=== PATIENT | female | born 1945 | race Caucasian/White ===

== ENCOUNTER 2016-06-29 06:58 | Day surgery (SDC) | payer MEDICARE, OTHER ==
[2016-06-24 17:56] LABS: BASOPHILS 0.2 %; BASOPHILS ABSOLUTE 0.01 10/3/uL (0.0-0.16); EOSINOPHILS 0.6 %; EOSINOPHILS ABSOLUTE 0.04 10/3/uL (0.0-0.53); HEMATOCRIT 41.4 % (36.0-48.0); HEMOGLOBIN 14.3 g/dL (12.0-16.0); IMMATURE GRANULOCYTES 0.2 %; IMMATURE GRANULOCYTES ABSOLUTE 0.01 10/3/uL (0.0-0.11); LYMPHOCYTES 27.4 %; LYMPHOCYTES ABSOLUTE 1.77 10/3/uL (0.67-4.30); MEAN CORPUS HGB CONC 34.5 g/dL (32.0-36.0); MEAN CORPUSCULAR HEMOGLOB 30.9 pg (26.0-34.0); MEAN CORPUSCULAR VOLUME 89.4 fL (80-100); MEAN PLATELET VOLUME 10.5 fL (9.2-13.0); MONOCYTES 7.9 %; MONOCYTES ABSOLUTE 0.51 10/3/uL (0.21-1.20); NEUTROPHILS 63.7 %; NEUTROPHILS ABSOLUTE 4.11 10/3/uL (2.02-8.40); PLATELET COUNT 172 10/3/uL (150-400); RBC DISTRIBUTION WIDTH 13.5 % (12.0-16.0); RED CELL COUNT 4.63 10/6/uL (4.0-5.6); WHITE BLOOD CELLS 6.5 10/3/uL (4.5-10.5)
[2016-06-24 17:57] LABS: MANUAL DIFF NO %
[2016-06-24 18:03] LABS: A/G RATIO 1.5 (0.7-1.9); ALBUMIN 4.2 G/DL (3.5-5.0); ALKALINE PHOSPHATASE 83 U/L (45-117); BUN (BLOOD UREA NITROGEN) 17 MG/DL (6-23); CALCIUM, SERUM 9.9 MG/DL (8.5-10.4); CHLORIDE, SERUM 100 MMOL/L (96-112); CO2 (CARBON DIOXIDE) 30 MMOL/L (24-34); CREATININE 0.63 MG/DL (0.55-1.02); GFR AFRICAN AMERICAN 106 ML/MIN (>=60); GFR NON AFRICAN AMERICAN 92 ML/MIN (>=60); GLOBULIN 2.8 G/DL (2.5-4.1); GLUCOSE, SERUM 91 MG/DL (60-99); POTASSIUM, SERUM 3.9 MMOL/L (3.5-5.3); SGOT(AST) 12 U/L (5-40); SGPT(ALT) 39 U/L (5-65); SODIUM, SERUM 140 MMOL/L (135-148); TOTAL BILIRUBIN 0.5 MG/DL (0-1.2)
--- NOTE | ~2016-06-29 | OP ---
Record Of Operation [facility] [address] [place]. [address] NAME: ALMA ROSA SHAH : 49 STATUS : [facility]#: [id number] AGE: 71 ADM/REG DATE : 06/29/16 MR#: [id number] REPORT SERV DATE: 06/30/16 DICTATED BY: JAZZ WOOD JR. DATE: 06/29/16 REPORT STATUS : Draft TRANSCRIBED BY: MODL DATE: 06/29/16 DATE OF PROCEDURE: 06/29/2016 SURGEON: Jazz Wood M.D. DECK WORKER: Ermelinda Sahu. PROCEDURE: Laparoscopic cholecystectomy, attempted cholangiography. PREOPERATIVE DIAGNOSIS: Cholelithiasis. POSTOPERATIVE DIAGNOSIS: Cholelithiasis. ANESTHESIA: General. INDICATIONS: The patient had presented with upper abdominal pain. She also had episodes of acholic stools. Imaging showed cholelithiasis without biliary ductal dilatation. Cholecystectomy is indicated with plans of cholangiography to rule out any particular common bile duct abnormality in view of the questionable history of acholic stools. FINDINGS: On laparoscopic exam of her abdomen, there was some inflammation of the gallbladder. The cystic duct was resected. It was very small and would not accept the cholangiogram catheter, therefore, the cholangiogram was aborted. The gallbladder was removed successfully, it contained small stones. No other significant abnormalities were encountered. DESCRIPTION OF PROCEDURE: With adequate general anesthesia, the patient was placed in supine position. The abdomen was prepped and draped sterilely. Marcaine 0.5% was used for local infiltration at all trocar sites. An infraumbilical incision was made. The dissection was carried down sharply through the subcutaneous tissues. The fascia and peritoneum were opened. The peritoneum cavity was entered. A balloon-tipped trocar was introduced. The abdomen was insufflated with CO2. The laparoscope was introduced with the above-noted findings. Under direct vision, a 10 mm trocar was placed in the epigastric region and two 5 mm in the subcostal. The gallbladder was identified, grasped, and retracted in a cephalad manner. The cystic duct was dissected, clipped proximally and partially opened. The catheter could not be introduced as noted. Therefore, the duct was doubly clipped and divided. Some of the artery was doubly clipped and divided. The gallbladder was removed from its bed with electrocautery. It was placed in an Endopouch and extracted through the epigastric site and submitted to Pathology. Bleeding was controlled with electrocautery. The wounds were irrigated thoroughly with saline with no evidence of any bleeding or bile leak. Then, all trocars were removed under direct vision. The umbilical site was closed at the fascial layer with [id number] 0 PDS. All wounds were then closed with 1-0 Monocryl. Sterile dressings were applied. The patient tolerated the procedure well and left the operating room in satisfactory condition. ESTIMATED BLOOD LOSS: 10 mL. Record Of Operation [address] [address] NAME: ALMA ROSA SHAH : 49 STATUS : [facility]#: [id number] AGE: 71 ADM/REG DATE : 06/29/16 MR#: [id number] REPORT SERV DATE: 06/30/16 DICTATED BY: JAZZ WOOD JR. DATE: 06/29/16 REPORT STATUS : Draft TRANSCRIBED BY: KEITH DATE: 06/29/16 PARKER/KEITH Jazz Wood Jr., M.D. / [id number] CC: Marleny Dietrich Jr., JESUS M
[~2016-06-29 06:58] MED LIST: ACET500CAP PO; ALLEGRA180 PO; ATEN100 PO; COREG12 PO; ESTRACE1 MG PO; ESTRADIOL2 MG PO; GYNODIOL2 MG PO; HYGROTON 25 MG25 MG PO; MELATONIN10 M2 PO; METHOC500B PO; MOTRIN IB200 MG PO; OXYCOD PO; PACERONE400 MG PO; PEP20 PO; PR25 PO; PRILO PO; PRIN5 PO; VALIUM10 MG PO; XARELTO20 MG PO
== END 2016-06-29 18:07 | disposition home or self-care (01) ==
LOC: SDC 06:58
PROVIDERS: Specialist
PROC: 0FT44ZZ Resection of Gallbladder, Percutaneous Endoscopic Approach (ICD-10-PCS; principal; 2016-06-29 09:00)
DX: K80.10 Calculus of gallbladder with chronic cholecystitis without obstruction (principal); I11.0 Hypertensive heart disease with heart failure; I50.9 Heart failure, unspecified; I48.2 Chronic atrial fibrillation; I42.0 Dilated cardiomyopathy; E78.5 Hyperlipidemia, unspecified; E78.00 Pure hypercholesterolemia, unspecified; Z88.2 Allergy status to sulfonamides; Z88.5 Allergy status to narcotic agent; Z88.8 Allergy status to other drugs, medicaments and biological substances; Z79.01 Long term (current) use of anticoagulants; Z79.899 Other long term (current) drug therapy; Z96.5 Presence of tooth-root and mandibular implants; Z87.01 Personal history of pneumonia (recurrent); Z98.1 Arthrodesis status; Z90.710 Acquired absence of both cervix and uterus; Z98.890 Other specified postprocedural states; Z85.820 Personal history of malignant melanoma of skin
CPT/HCPCS: 36415; 71020-PO; 80053; 82150; 83690; 85025; 88304; 93005; J0330; J0690; J1885; J2250; J2405; J2710; J3010; Q9967

== ENCOUNTER 2016-08-29 14:45 | Inpatient (IN) | payer MEDICARE, OTHER ==
--- NOTE | ~2016-08-29 | HP ---
History And Physical [place] [id number] [facility] [place]. [address] NAME: ALMA ROSA SHAH : 49 STATUS : ADM Jarrod PAT#: [id number] AGE: 71 ADM/REG DATE : 08/29/16 MR#: [id number] REPORT SERV DATE: 08/29/16 DICTATED BY: JEAN SAVAGE DATE: 08/29/16 REPORT STATUS : Draft TRANSCRIBED BY: MODL DATE: 08/29/16 DATE OF ADMISSION: 08/29/2016 IDENTIFYING DATA: A 71-year-old, female, whose PCP is physician floor covering printer assistant, Fuentes Casey; General Surgery, Dr. Bernabe Martínez; Ortho Spine, Dr. Lobato; information security systems instructor, Dr. Bernabe Ramirez; Cardiology, Dr. Chaitanya Rubio. CHIEF COMPLAINT: Allergic reaction. HISTORY OF PRESENT ILLNESS: This history of present illness is obtained by talking with the patient and her as well as ER physician, Dr. Harris, and reviewing Medi[employer]., Chart[employer]x is down. This morning, she awoke, feeling some soreness in her right axilla area, itching, then she has welts over her anterior upper chest and arms and her noticed it on the back, some on her abdomen, some on her thighs, forehead, right eyelid, upper lips. She took two Benadryl by mouth, some Benadryl spray, and some allergy cream her had. She went to [facility] walk-in clinic where she reports her blood pressure was low, they gave her an injection of epinephrine, brought her by ambulance to our ER where her blood pressure was 95/63. She was given saline, Pepcid IV, Solu-Medrol 125 mg IV, Benadryl 25 mg IV. The Pepcid was [address] Harris reports that the rash spread. The patient states she started yesterday some styt-ynp-momaszz supplement called Stevinson which has D-Mannose. She also states that a week or so ago, she was on Cipro for urinary tract infection and she believes it was Cipro she states with some orange and black pill. She quit about four days ago and she started a yellow and black pill 100 mg for the last four days. She used to take Azo-Standard, but has not in three weeks. She states this is because of recurrent dysuria and urinary frequency and advised by her physicians to do such. REVIEW OF SYSTEMS: She has a chronic sore throat, chronic hoarse voice, mild cough. She had diarrhea three weeks ago. She states intermittently since her gallbladder surgery, she had some white- colored stools for which she has been following up with Dr. Martínez. She underwent a HIDA scan, 07/16/2016, that was reportedly unremarkable other than the evidence of cholecystectomy. She denies fever, chest pain, shortness of breath, abdominal pain, nausea, vomiting, bright red blood per rectum, melena, peripheral edema, headaches, anorexia, or weight change. PAST MEDICAL HISTORY: She claims allergy to sulfa, codeine, hydrocodone, oxycodone, methocarbamol, tramadol. She denies any history of diabetes, asthma, COPD, myocardial infarction, stroke, seizure, peptic ulcer, liver disease, chronic kidney disease, thyroid disease, or sleep apnea. Past medical historyotherwise positive for atrial fibrillation with previous rapid ventricular response and previous episodes of congestive heart failure. She has a history History And Physical [address] [address] NAME: ALMA ROSA SHAH : 49 STATUS : ADM Jarrod PAT#: [id number] AGE: 71 ADM/REG DATE : 08/29/16 MR#: [id number] REPORT SERV DATE: 08/29/16 DICTATED BY: JEAN SAVAGE DATE: 08/29/16 REPORT STATUS : Draft TRANSCRIBED BY: MODJames DATE: 08/29/16 of hyperlipidemia, hypertension, bilateral pneumonia in 2013. She has had a pre-melanotic lesion removed. She has had chronic insomnia. HOME MEDICATIONS: Lipitor 10 mg at bedtime; Coreg 12.5 mg b.i.d.; chlorthalidone 25 mg daily; Valium 10 mg at bedtime p.r.n., she states she has been taking that every night for years; Benadryl just in the last 24 hours; lisinopril 5 mg b.i.d.; melatonin 10 mg at bedtime; fish oil 1200 mg at bedtime and 360 mg supplement also of fish oil; Xarelto 20 mg at bedtime; Benadryl spray. PAST SURGICAL HISTORY: She had cervical spine surgery, MATT-BSO, bladder suspension twice, laparoscopic cholecystectomy, and some skin cancer removals. SOCIAL HISTORY: She is . Used to work for a [employer]. She is retired. She has no tobacco or alcohol intake history. FAMILY HISTORY: Mother with senile dementia, thyroid disease, diabetes, chronic kidney disease and it is her mother's birthday today. Father's history, she does not know, and she is an only child. DIAGNOSTIC DATA: Sodium 140, potassium 3.4, chloride 104, CO2 is 27, BUN 15, creatinine 0.61, glucose 137. Total protein 5.8, albumin 3.3. The rest of the CMP is normal. White count is 18.4, hemoglobin is 15.8, platelets are 176,000. PHYSICAL EXAMINATION: VITAL SIGNS: Temperature 98, pulse 70, respirations 18, blood pressure 113/55, O2 saturation 98% on room air. GENERAL: Well-developed female, who at this point in time, appears with some itching, but no acute distress otherwise. HEENT: Head is atraumatic. Pupils are equal, round, and reactive to light. There is some swelling of the right upper eyelid. There is no conjunctival erythema that I noticed. Ear canals and TMs unremarkable with normal hearing. Nose, noninflamed externally. Septum midline. Nares patent. Mouth, she has some mild swelling of her upper mid lip. No lesions noted in her mouth or throat. She has a good gag. No redness of the throat. NECK: Supple. No lymph node or thyroid enlargement. The carotids have good pulses. No bruits. LUNGS: Clear. Good air flow. No wheezes. No rhonchi. Normal respiratory effort. HEART: Irregularly irregular without gallop, click, murmur, or rub. ABDOMEN: Bowel sounds positive. Soft, nondistended, nontender. No masses. No organomegaly. EXTREMITIES: Warm. Good pulses. No clubbing, no cyanosis, no edema except her fingers look like they may be mildly diffusely swollen, both hands. SKIN: Large areas of red raised coalescing spots, some of them are the size of a dime, others cover larger than my palm. These are spread out over her back. They are more intense around the dressing that is on a place where she had a recent biopsy, but they clearly extend the way beyond this. They also extend around along the waistband circumferentially, but they also extend up to under the breast, upper chest, upper thighs, forearms, palms. History And Physical [address] [place]. [address] NAME: ALMA ROSA SHAH : 49 STATUS : ADM Jarrod PAT#: [id number] AGE: 71 ADM/REG DATE : 08/29/16 MR#: [id number] REPORT SERV DATE: 08/29/16 DICTATED BY: JEAN SAVAGE DATE: 08/29/16 REPORT STATUS : Draft TRANSCRIBED BY: KEITH DATE: 08/29/16 Neurologic: Alert, oriented, cooperative with grossly normal mentation and speech as well as motor and cranial nerves 2 through 12. ASSESSMENT: 1. Allergic reaction with hives and some earlier low blood pressure today. This is most likely a recent medication, maybe one of the antibiotic she has been taking or this kgth-pfu-paubyrs supplement called Stevinson. 2. Chronic atrial fibrillation with past episodes of rapid ventricular response and past episodes of congestive heart failure, but we do not have any recent echocardiograms to county judge her ejection fraction. 3. Leukocytosis is probably due to problem #1 and the epinephrine given at the outside facility before she came here. 4. Low potassium, probably from her chlorthalidone. 5. History consistent with recent urinary tract infections. 6. See past medical history. PLAN: 1. Observation on telemetry. 2. Continue steroids, Pepcid, and Benadryl. We will check an EKG. Replace her potassium. We will check a urinalysis and urine culture. is updated at the bedside at this time. I have advised her she may be allergic to those recent antibiotics and that supplement Stevinson. RSG/KEITH Jean Savage M.D. / [id number] CC: Marleny Álvarez M.D.
--- NOTE | ~2016-08-29 | DS ---
Discharge Summary [place] [address] [place]. [address] NAME: ALMA ROSA SHAH : 49 STATUS : DIS IN PAT#: [id number] AGE: 71 ADM/REG DATE : 08/31/16 MR#: [id number] REPORT SERV DATE: 09/01/16 DICTATED BY: PRINCESS HUANG DATE: 08/31/16 REPORT STATUS : Draft TRANSCRIBED BY: MODL DATE: 08/31/16 ADMISSION DATE: 08/29/2016 DISCHARGE DATE: 08/31/2016 PRINCIPAL DIAGNOSIS: Anaphylaxis or allergic reaction to unknown substance. SECONDARY DIAGNOSES: Urticaria, hypotension with a history of hypertension. HISTORY OF PRESENT ILLNESS: Please See Dr. Savage's dictation of 08/31/2016. HOSPITAL COURSE: Admitted with anaphylactic reaction with hypotension, severe swelling of the face, and a drug eruption all over her body. The patient received steroids H1 and H2 blockers. She did not actually require epinephrine. Blood pressure remained in the 90s on IV fluids off her blood pressure medicine. Things got better over the course of a couple of days, able to be transitioned to oral prednisone, continue hydroxyzine, Pepcid. She is also given a prescription for an EpiPen and referred to an greenkeeper as she had been previously on allergy shots and was recommended to be re-evaluated for allergic triggers with resulting anaphylactic reaction. She will follow up also with Dr. Fuentes Casey on the next available appointment. DICTATED BY: Marleny Álvarez/KEITH Princess Huang M.D. / [id number] CC: Marleny Álvarez [facility]
[2016-08-29 14:47] LABS: ER CBC TAT 0 Hrs 05 Mins; HEMATOCRIT 44.6 % (36.0-48.0); HEMOGLOBIN 15.8 g/dL (12.0-16.0); MANUAL DIFF YES %; MEAN CORPUS HGB CONC 35.4 g/dL (32.0-36.0); MEAN CORPUSCULAR HEMOGLOB 30.5 pg (26.0-34.0); MEAN CORPUSCULAR VOLUME 86.1 fL (80-100); MEAN PLATELET VOLUME 10.3 fL (9.2-13.0); PLATELET COUNT 176 10/3/uL (150-400); RBC DISTRIBUTION WIDTH 12.5 % (12.0-16.0); RED CELL COUNT 5.18 10/6/uL (4.0-5.6); WHITE BLOOD CELLS 18.4 10/3/uL (4.5-10.5)
[2016-08-29 15:01] LABS: A/G RATIO 1.3 (0.7-1.9); ALBUMIN 3.3 G/DL (3.5-5.0); ALKALINE PHOSPHATASE 100 U/L (45-117); BUN (BLOOD UREA NITROGEN) 15 MG/DL (6-23); CHLORIDE, SERUM 104 MMOL/L (96-112); CO2 (CARBON DIOXIDE) 27 MMOL/L (24-34); CREATININE 0.61 MG/DL (0.55-1.02); GFR AFRICAN AMERICAN 107 ML/MIN (>=60); GFR NON AFRICAN AMERICAN 92 ML/MIN (>=60); SGOT(AST) 20 U/L (5-40); SGPT(ALT) 36 U/L (5-65); SODIUM, SERUM 140 MMOL/L (135-148); TOTAL BILIRUBIN 0.5 MG/DL (0-1.2); TOTAL PROTEIN 5.8 G/DL (6.0-8.5)
[2016-08-29 15:04] LABS: CALCIUM, SERUM 8.7 MG/DL (8.5-10.4); GLOBULIN 2.5 G/DL (2.5-4.1); GLUCOSE, SERUM 137 MG/DL (60-99); POTASSIUM, SERUM 3.4 MMOL/L (3.5-5.3)
[2016-08-29 15:15] LABS: BAND NEUTROPHILS 6 %; ER DIFF TAT 0 Hrs 33 Mins; LYMPHOCYTES 10 %; LYMPHOCYTES ABSOLUTE (CALC) 1.84 10/3/uL (0.67-4.30); MONOCYTES 4 %; MONOCYTES ABSOLUTE (CALC) 0.74 10/3/uL (0.21-1.20); NEUTROPHILS ABSOLUTE (CALC) 15.82 10/3/uL (2.02-8.40); PLATELET ESTIMATE ADQ (ADEQUATE); SEGMENTED NEUTROPHIL (0) 80 %; TOTAL NUCLEATED CELLS 100
[2016-08-29 15:16] LABS: RBC MORPHOLOGY NORM (NORMAL)
[2016-08-29] MEDS ORDERED: COREG12 PO (18:05)
[2016-08-29] MEDS ORDERED: TYLENOL PM PO (18:05)
[2016-08-29] MEDS ORDERED: PRIN5 PO (18:05)
[2016-08-29] MEDS ORDERED: HYGROTON 25 MG25 MG PO (18:05)
[2016-08-29] MEDS ORDERED: LIPITOR10 PO (18:06)
[2016-08-29] MEDS ORDERED: XARELTO20 MG PO (18:06)
[2016-08-29] MEDS ORDERED: BEN25 PO (18:06)
[2016-08-29] MEDS ORDERED: BENADRYL PO (18:07)
[2016-08-29] MEDS ORDERED: FISH OIL1200 MG PO (18:07)
[2016-08-29] MEDS ORDERED: FISH OIL300 MG PO (18:07)
[2016-08-29] MEDS ORDERED: MELATONIN10 M2 PO (18:08)
[2016-08-29] MEDS ORDERED: VALIUM10 MG PO (18:08)
[2016-08-29 23:49] LABS: ASCORBIC ACID (UR NOT ORDER) NEG (NEG); BILIRUBIN, URINE NEGATIVE (NEG); KETONE, URINE NEGATIVE (NEG); LEUKOCYTE ESTERASE(NOT OR NEG (NEG); WBC (NOT ORDERED) (RFLEX) < 1 (0-5)
[2016-08-30 04:43] LABS: BASOPHILS 0.1 %; BASOPHILS ABSOLUTE 0.01 10/3/uL (0.0-0.16); EOSINOPHILS 0 %; HEMATOCRIT 36.7 % (36.0-48.0); HEMOGLOBIN 13.1 g/dL (12.0-16.0); IMMATURE GRANULOCYTES 0.2 %; IMMATURE GRANULOCYTES ABSOLUTE 0.03 10/3/uL (0.0-0.11); LYMPHOCYTES 3.9 %; LYMPHOCYTES ABSOLUTE 0.53 10/3/uL (0.67-4.30); MANUAL DIFF NO %; MEAN CORPUS HGB CONC 35.7 g/dL (32.0-36.0); MEAN CORPUSCULAR HEMOGLOB 30.5 pg (26.0-34.0); MEAN CORPUSCULAR VOLUME 85.5 fL (80-100); MEAN PLATELET VOLUME 10.3 fL (9.2-13.0); MONOCYTES 1.7 %; MONOCYTES ABSOLUTE 0.23 10/3/uL (0.21-1.20); NEUTROPHILS 94.1 %; NEUTROPHILS ABSOLUTE 12.64 10/3/uL (2.02-8.40); PLATELET COUNT 142 10/3/uL (150-400); RBC DISTRIBUTION WIDTH 12.5 % (12.0-16.0); RED CELL COUNT 4.29 10/6/uL (4.0-5.6); WHITE BLOOD CELLS 13.4 10/3/uL (4.5-10.5)
[2016-08-30 04:56] LABS: BUN (BLOOD UREA NITROGEN) 18 MG/DL (6-23); CALCIUM, SERUM 8.5 MG/DL (8.5-10.4); CHLORIDE, SERUM 104 MMOL/L (96-112); CO2 (CARBON DIOXIDE) 26 MMOL/L (24-34); CREATININE 0.88 MG/DL (0.55-1.02); GFR AFRICAN AMERICAN 78 ML/MIN (>=60); GFR NON AFRICAN AMERICAN 67 ML/MIN (>=60); GLUCOSE, SERUM 181 MG/DL (60-99); POTASSIUM, SERUM 3.4 MMOL/L (3.5-5.3); SODIUM, SERUM 138 MMOL/L (135-148)
[2016-08-31 05:07] LABS: BASOPHILS 0 %; EOSINOPHILS 0 %; HEMATOCRIT 36.5 % (36.0-48.0); HEMOGLOBIN 12.9 g/dL (12.0-16.0); IMMATURE GRANULOCYTES 0.2 %; IMMATURE GRANULOCYTES ABSOLUTE 0.02 10/3/uL (0.0-0.11); LYMPHOCYTES 6.2 %; LYMPHOCYTES ABSOLUTE 0.66 10/3/uL (0.67-4.30); MEAN CORPUS HGB CONC 35.3 g/dL (32.0-36.0); MEAN CORPUSCULAR HEMOGLOB 30.5 pg (26.0-34.0); MEAN CORPUSCULAR VOLUME 86.3 fL (80-100); MEAN PLATELET VOLUME 12.1 fL (9.2-13.0); MONOCYTES 1.9 %; NEUTROPHILS 91.7 %; NEUTROPHILS ABSOLUTE 9.82 10/3/uL (2.02-8.40); PLATELET COUNT 104 10/3/uL (150-400); RBC DISTRIBUTION WIDTH 12.8 % (12.0-16.0); RED CELL COUNT 4.23 10/6/uL (4.0-5.6); WHITE BLOOD CELLS 10.7 10/3/uL (4.5-10.5)
[2016-08-31 05:16] LABS: MANUAL DIFF NO %
[2016-08-31] MEDS ORDERED: PEP20 PO (11:19)
[2016-08-31] MEDS ORDERED: AT25 PO (11:20)
[2016-08-31] MEDS ORDERED: PRED50B PO (11:21)
[2016-08-31] MEDS ORDERED: EPIPEN0.3 IM (11:21)
== END 2016-08-31 12:32 | disposition home or self-care (01) | DRG 607 ==
LOC: ER 14:45 → CDU1 17:50 → CDU2 18:54
PROVIDERS: Emergency Medicine; Hospitalist; Internal Medicine
DX: L27.0 Generalized skin eruption due to drugs and medicaments taken internally (principal); I48.2 Chronic atrial fibrillation; T50.905A Adverse effect of unspecified drugs, medicaments and biological substances, initial encounter; Y92.009 Unspecified place in unspecified non-institutional (private) residence as the place of occurrence of the external cause; L50.0 Allergic urticaria; E78.5 Hyperlipidemia, unspecified; I10 Essential (primary) hypertension; Z85.828 Personal history of other malignant neoplasm of skin; Z79.01 Long term (current) use of anticoagulants
CPT/HCPCS: 80048; 80053; 81001; 85025; 93005; 96374; 96375; 99284; A9270-GY; J1200; J2930

== ENCOUNTER 2016-09-02 12:47 | Inpatient (IN) | payer MEDICARE, OTHER ==
--- NOTE | ~2016-09-02 | DS ---
Discharge Summary [facility] [address] [place]. [address] NAME: ALMA ROSA SHAH : 49 STATUS : ADM IN PAT#: [id number] AGE: 71 ADM/REG DATE : 09/03/16 MR#: [id number] REPORT SERV DATE: 09/05/16 DICTATED BY: MIGUELANGEL ALEXANDER DATE: 09/05/16 REPORT STATUS : Draft TRANSCRIBED BY: MODL DATE: 09/05/16 ADMISSION DATE: 09/03/2016 DISCHARGE DATE: 09/05/2016 FINAL HOSPITAL DIAGNOSES: 1. Atrial fibrillation. 2. Recent hospitalization for anaphylactic reaction to suspected [id number]-vtvppgq med, resolved. 3. Hypertension. 4. Remote history of congestive heart failure, improved. CONSULTATIONS: Cardiology, Dr. Rubio. PROCEDURES: None. CURRENT PHYSICAL FINDINGS AND HISTORY OF PRESENT ILLNESS: Please see initial dictated H and P by Dr. Victor. In brief, the patient is a 71-year-old female, who was previously hospitalized for significant reaction to medications either prescribed or herbal. She was discharged with instructions to hold her cardiac medications. She re-presented with atrial fib, RVR. HOSPITAL COURSE: Initial vital signs, BP was 108/76, heart rate was 108. Lab work, initial potassium was slightly low at 2.8. This was corrected per protocol. No other significant abnormalities with the exception of phosphorus was slightly low at 1.6, corrected to 2.1. Troponin was negative. TSH was 3.47. BNP was 674. CBC was unremarkable on her initial draw. Subsequent showed a slight anemia at 11 and 32. Normal white count. Chest x-ray showed minimal left basilar atelectasis, otherwise no acute cardiopulmonary abnormality. The patient was admitted. Cardizem drip protocol was initiated. Home medications were reviewed and ordered appropriately. Cardiology was consulted. Drip was titrated, and electrolytes were replaced per protocol. On the first hospital day, she was attempted to wean from the Cardizem and her lisinopril was discontinued as her most recent echocardiogram showed improved EF. The patient had also been taken off her diuretic and Aldactone was selected given her sulfa intolerance of previous medications. The evening of 09/03/2016, she got a bump in her Coreg. She had to restart her Cardizem drip. Dr. Rubio saw her the following day, wean to drip increased to Coreg and started her back on amiodarone. The patient's only complaint at that time was some shortness of breath, but did not seem to be in failure, have significant wheezing. She was re-evaluated on 09/05/2016, off the Cardizem drip in sinus rhythm and was felt stable for discharge. DISPOSITION: She is discharged home. New prescriptions were written for Cordarone 200 b.i.d., Coreg 25 b.i.d. I wrote her prescription for Aldactone 25 one day to replace her chlorthalidone. She was instructed to call [facility] on Wednesday for followup and to get a BMP to recheck for any hyper or hypokalemia in the next 10 days or so. She will otherwise continue Lipitor 10, Pepcid 20 b.i.d., melatonin 10 at bedtime, Xarelto 20, Tylenol p.r.n., Valium 10 p.r.n., Atarax 25 p.r.n., and EpiPen Discharge Summary [address] [address] NAME: ALMA ROSA SHAH : 49 STATUS : ADM IN PAT#: [id number] AGE: 71 ADM/REG DATE : 09/03/16 MR#: [id number] REPORT SERV DATE: 09/05/16 DICTATED BY: MIGUELANGEL ALEXANDER DATE: 09/05/16 REPORT STATUS : Draft TRANSCRIBED BY: MODL DATE: 09/05/16 p.r.n. DICTATED BY: Miguelangel Alexander M.D. TLF/KEITH Miguelangel Alexander M.D. / [id number] CC: Marleny Benjamin Jesus M
--- NOTE | ~2016-09-02 | HP ---
History And Physical [place] [id number] [facility] [place]. [address] NAME: ALMA ROSA SHAH : 49 STATUS : ADM Jarrod PAT#: [id number] AGE: 71 ADM/REG DATE : 09/02/16 MR#: [id number] REPORT SERV DATE: 09/03/16 DICTATED BY: BRIAN LEA DATE: 09/02/16 REPORT STATUS : Draft TRANSCRIBED BY: MODL DATE: 09/02/16 DATE OF ADMISSION: 09/02/2016 CHIEF COMPLAINT: Palpitations and dizziness. HISTORY OF PRESENT ILLNESS: This is a 71-year-old female, who was recently admitted here for an anaphylactic reaction with urticaria after she took an herbal supplement hoping to cure her urinary tract infection and subsequently developed this reaction. She was treated with hydrocortisone and other medication as inpatient, she recovered well and was discharged home having stopped all her medications and to see an investment director before she started anything. Dr. Chaitanya Rubio, her ground operations crew member, was aware of this plan as well. She was even take off her Coreg for her atrial fibrillation. The patient went home and started experiencing severe palpitations. She thought she was going to . She called got Dr. Rubio's office several times and they had had conversations regarding this. Finally, Dr. Rubio wanted her to come back to the emergency room to be evaluated. In the emergency room, she indeed presented with a heart rate of more than 160 per minute in atrial fibrillation with rapid ventricular response. She was started on Cardizem infusion and titrated up, and she went in and out of sinus tachycardia and atrial fibrillation. Hospitalist Service was asked to admit her for further evaluation and treatment. She also had severe hypokalemia in the ER as well. At the time of my evaluation, she denied any chest pain or palpitations. She was much more comfortable. Her heart rate was between 84 and 105. She denied any orthopnea. She has not had any recent cough, fevers, chills, nausea, vomiting, or diarrhea. She has not had any hematemesis, hematochezia, or hematuria. No other history of recent travel or exposures other than those mentioned above. PAST MEDICAL HISTORY: Significant for history of severe anaphylactic reaction and urticaria subsequent to an oral herbal supplement that she took. She has history of hypertension, hyperlipidemia, history of congestive heart failure, a pre melanotic lesion status post excision. She also has chronic atrial fibrillation. SOCIAL HISTORY: She does not smoke, drink, or use recreational drugs. FAMILY HISTORY: Noncontributory. MEDICATIONS: Her medications at home were reviewed by me in the chart today and reordered by me. REVIEW OF SYSTEMS: As in history of present illness. All other systems were reviewed in detail and are quite unremarkable. PHYSICAL EXAMINATION: History And Physical [address] [address] NAME: ALMA ROSA SHAH : 49 STATUS : ADM Jarrod PAT#: [id number] AGE: 71 ADM/REG DATE : 09/02/16 MR#: [id number] REPORT SERV DATE: 09/03/16 DICTATED BY: BRIAN LEA DATE: 09/02/16 REPORT STATUS : Draft TRANSCRIBED BY: KEITH DATE: 09/02/16 GENERAL: This is a pleasant 71-year-old, not in any acute distress. HEENT: Her head is atraumatic, normocephalic. She is alert, awake, oriented to time, place, and person. Her pupils are equal, reacting to light and accommodating. External ocular muscles are intact. Membranes are moist and pink. Sclerae are nonicteric. NECK: Supple with no jugular venous distention, lymphadenopathy, or thyromegaly. LUNGS: Clear to auscultation with no wheezes, rubs, or crackles. HEART: Heart sounds were regular with no murmurs, rubs, or gallops at the time of my evaluation. ABDOMEN: Soft, nontender. Bowel sounds are present. EXTREMITIES: Showed no cyanosis, clubbing, or edema. NEUROLOGIC: Grossly intact. No focal sensory or motor deficits. Higher functions appear intact. Gait was not examined. VITAL SIGNS: Her temperature today was 98.0, pulse 108, respirations 16 a minute, blood pressure was 108/76. Oxygen saturations were 97%, breathing 2 L of oxygen via nasal cannula. LABORATORY DATA: Reviewed on the Serometrix system showed sodium of 145, potassium 2.8, chloride 103, and CO2 of 35. BUN was 9 with a creatinine of 0.70. Blood glucose was 166. Her magnesium was 1.9. Alkaline phosphatase, AST, and ALT were within normal limits. Troponin was 0.04 today. Her BNP was 674.0. Her CBC was essentially within normal limits, although her platelets had dropped down to 147. Her last count was 104. Her prothrombin time was 16.5 with an INR of 1.3 today. Urinalysis was grossly unremarkable. Films of the chest x-ray were reviewed by me on the PACS today and interpreted by me. Today's films were compared to prior films available here also. There were no lobar consolidations or pleural effusions seen. There was no cardiomegaly. A 12-lead EKG done in the emergency room was reviewed and interpreted by me. There is sinus tachycardia at a rate of 109 with first- degree AV block and frequent PVCs. IMPRESSION: 1. Atrial fibrillation with rapid ventricular response. 2. Hypokalemia. 3. Recent anaphylactic reaction, requiring inpatient treatment. 4. Hypertension. 5. Hyperlipidemia. 6. History of congestive heart failure. PLAN: We will admit Ms. Shah to the Hospitalist Service with telemetry for a 24-hour observation period. We will continue Cardizem infusion per protocol for rate control, as she continues to go in and out of sinus tachycardia and atrial fibrillation. We will continue to monitor her closely. We will also restart her Coreg at this time, as all of her cardiac medications were stopped before her discharge. Her appointment with her investment director is not until 09/12/2016, and she has been on atrial fibrillation, very uncomfortable. She had been in contact with Dr. Chaitanya Rubio, her ground operations crew member, whom we will consult to see in the morning. She is on Xarelto, we will continue this and continue rest of her home medications. We will replace potassium at this time. Check chemistry and CBC in the morning again. She will also continue her prednisone for now. She has no urticaria or any symptoms of her allergy at this point. I have discussed the above plans with the patient History And Physical [address] [address] NAME: ALMA ROSA SHAH : 49 STATUS : ADM Jarrod PAT#: [id number] AGE: 71 ADM/REG DATE : 09/02/16 MR#: [id number] REPORT SERV DATE: 09/03/16 DICTATED BY: BRIAN LEA DATE: 09/02/16 REPORT STATUS : Draft TRANSCRIBED BY: KEITH DATE: 09/02/16 and her . Questions were answered and they are agreeable to the above recommendations. Please see today's orders for details. Hospitalist Service will be following her during her stay here. /KEITH Brian Lea M.D. / [id number] CC: Marleny Benjamin
--- NOTE | ~2016-09-02 | CN ---
Consultation Report [place] [id number] [facility] [place]. [address] NAME: ALMA ROSA SHAH : 49 STATUS : ADM Jarrod PAT#: [id number] AGE: 71 ADM/REG DATE : 09/02/16 MR#: [id number] REPORT SERV DATE: 09/03/16 DICTATED BY: CHAITANYA RUBIO DATE: 09/03/16 REPORT STATUS : Draft TRANSCRIBED BY: MODL DATE: 09/03/16 CONSULTATION DATE OF CONSULTATION: Mrs. Alma Rosa Shah is a 71-year-old female, who enters through the emergency room with atrial fibrillation with RVR. HOSPITALIST: Reji Engel DO. CVD PHYSICIAN: Chaitanya Rubio M.D. HISTORY OF PRESENT ILLNESS: Mrs. Alma Rosa Shah had been seen in the emergency room a couple of weeks ago with an anaphylactic-like reaction. She recently changed and was taking some new herbal medications. Her other medications have not changed for several years. All medications, however, were stopped at that time, and she now returns with recurrent atrial fibrillation with rapid ventricular response. REVIEW OF SYSTEMS: Negative for chest pain, chest discomfort, syncope, presyncope, dyspnea, or lower extremity edema. Rest is negative. PAST MEDICAL HISTORY: 1. Long-term use of anticoagulation, Xarelto. 2. Hypertension, longstanding. 3. Chronic paroxysmal atrial fibrillation with new onset fibrillation 05/05 with recurrent episodes, previously stable on a beta-sinan. 4. Dilated cardiomyopathy with an ejection fraction 32% on 05/05, improving to 58% on 06/05. 5. Hyperlipidemia, intolerant to statins. SOCIAL HISTORY: She is moderately active. She does not drink or smoke. FAMILY HISTORY: Negative for early heart disease. PHYSICAL EXAMINATION: VITAL SIGNS: Blood pressure is 128/70 and heart rate now is 68 and regular. GENERAL: Resting comfortably, nutritional status appears adequate. EYES: PERRLA. LUNGS: No labored use of accessory muscles. Without rales or wheezes. COR: PMI is not displaced. No thrills or heaves. NL S1 and S2. No S3, murmur, click or rub. PULSES: Carotids without bruits. ABD: +BS, nontender. EXT: No cyanosis, clubbing or edema. Consultation Report [place] [id number] [facility] [place]. [address] NAME: ALMA ROSA SHAH : 49 STATUS : ADM Jarrod PAT#: [id number] AGE: 71 ADM/REG DATE : 09/02/16 MR#: [id number] REPORT SERV DATE: 09/03/16 DICTATED BY: CHAITANYA RUBIO DATE: 09/03/16 REPORT STATUS : Draft TRANSCRIBED BY: MODL DATE: 09/03/16 SKIN: No petechiae. NEURO: Alert and oriented. Does not appear anxious or depressed. LABORATORY EVALUATION: Telemetry now shows sinus rhythm. ASSESSMENT: At this time, I will continue on beta-sinan, discontinue the Cardizem IV. We will watch for the rest of the afternoon and send home in the morning if remains stable. GG/KEITH Chaitanya Rubio M.D. / [id number] CC: Marleny Benjamin JESUS M
[~2016-09-02 12:47] MED LIST changes: +AT25 PO; +BEN25 PO; +BENADRYL PO; +EPIPEN0.3 IM; +FISH OIL1200 MG PO; +FISH OIL300 MG PO; +LIPITOR10 PO; +PRED50B PO; +TYLENOL PM PO
[2016-09-02 13:49] LABS: BASOPHILS 0.1 %; BASOPHILS ABSOLUTE 0.01 10/3/uL (0.0-0.16); EOSINOPHILS 1.4 %; EOSINOPHILS ABSOLUTE 0.14 10/3/uL (0.0-0.53); ER CBC TAT 0 Hrs 07 Mins; HEMATOCRIT 37.1 % (36.0-48.0); HEMOGLOBIN 12.6 g/dL (12.0-16.0); IMMATURE GRANULOCYTES 3.5 %; IMMATURE GRANULOCYTES ABSOLUTE 0.36 10/3/uL (0.0-0.11); LYMPHOCYTES 18.7 %; LYMPHOCYTES ABSOLUTE 1.91 10/3/uL (0.67-4.30); MANUAL DIFF NO %; MEAN CORPUSCULAR HEMOGLOB 30.1 pg (26.0-34.0); MEAN CORPUSCULAR VOLUME 88.8 fL (80-100); MEAN PLATELET VOLUME 10.4 fL (9.2-13.0); MONOCYTES 5.1 %; MONOCYTES ABSOLUTE 0.52 10/3/uL (0.21-1.20); NEUTROPHILS 71.2 %; NEUTROPHILS ABSOLUTE 7.29 10/3/uL (2.02-8.40); PLATELET COUNT 147 10/3/uL (150-400); RED CELL COUNT 4.18 10/6/uL (4.0-5.6); WHITE BLOOD CELLS 10.2 10/3/uL (4.5-10.5)
[2016-09-02 13:58] LABS: INTERNATIONAL NORMAL RATI 1.3 UNITS (-); PARTIAL THROMBO TIME 27.6 SEC (22.5-37.2); PROTIME (NOT ORD) 16.5 SEC (12.0-14.5)
[2016-09-02 14:03] LABS: CALCIUM, SERUM 9.2 MG/DL (8.5-10.4); CHEST PAIN PROFILE TAT 0 Hrs 21 Mins; CHLORIDE, SERUM 103 MMOL/L (96-112); GFR AFRICAN AMERICAN 102 ML/MIN (>=60); GFR NON AFRICAN AMERICAN 88 ML/MIN (>=60); GLUCOSE, SERUM 166 MG/DL (60-99); TROPONIN I 0.04 NG/ML (<0.05)
[2016-09-02 14:05] LABS: BUN (BLOOD UREA NITROGEN) 9 MG/DL (6-23); CO2 (CARBON DIOXIDE) 35 MMOL/L (24-34); POTASSIUM, SERUM 2.8 MMOL/L (3.5-5.3); SODIUM, SERUM 145 MMOL/L (135-148)
[2016-09-03 04:59] LABS: BASOPHILS 0.1 %; BASOPHILS ABSOLUTE 0.01 10/3/uL (0.0-0.16); EOSINOPHILS 0.3 %; EOSINOPHILS ABSOLUTE 0.02 10/3/uL (0.0-0.53); HEMATOCRIT 32.6 % (36.0-48.0); HEMOGLOBIN 11.1 g/dL (12.0-16.0); IMMATURE GRANULOCYTES 4.4 %; IMMATURE GRANULOCYTES ABSOLUTE 0.34 10/3/uL (0.0-0.11); LYMPHOCYTES 14.6 %; LYMPHOCYTES ABSOLUTE 1.13 10/3/uL (0.67-4.30); MANUAL DIFF NO %; MEAN CORPUSCULAR HEMOGLOB 30.4 pg (26.0-34.0); MEAN CORPUSCULAR VOLUME 89.3 fL (80-100); MEAN PLATELET VOLUME 10.1 fL (9.2-13.0); MONOCYTES 6.7 %; MONOCYTES ABSOLUTE 0.52 10/3/uL (0.21-1.20); NEUTROPHILS 73.9 %; NEUTROPHILS ABSOLUTE 5.72 10/3/uL (2.02-8.40); PLATELET COUNT 126 10/3/uL (150-400); RBC DISTRIBUTION WIDTH 12.9 % (12.0-16.0); RED CELL COUNT 3.65 10/6/uL (4.0-5.6); WHITE BLOOD CELLS 7.7 10/3/uL (4.5-10.5)
[2016-09-03 05:15] LABS: CALCIUM, SERUM 8.5 MG/DL (8.5-10.4); CHLORIDE, SERUM 108 MMOL/L (96-112); CO2 (CARBON DIOXIDE) 32 MMOL/L (24-34); CREATININE 0.58 MG/DL (0.55-1.02); GFR AFRICAN AMERICAN 109 ML/MIN (>=60); GFR NON AFRICAN AMERICAN 94 ML/MIN (>=60); GLUCOSE, SERUM 192 MG/DL (60-99); SODIUM, SERUM 146 MMOL/L (135-148)
[2016-09-03 05:16] LABS: BUN (BLOOD UREA NITROGEN) 13 MG/DL (6-23); PHOSPHORUS, SERUM 1.6 MG/DL (2.5-4.5); POTASSIUM, SERUM 3.8 MMOL/L (3.5-5.3)
[2016-09-04 08:51] LABS: BUN (BLOOD UREA NITROGEN) 13 MG/DL (6-23); CALCIUM, SERUM 8.6 MG/DL (8.5-10.4); CHLORIDE, SERUM 111 MMOL/L (96-112); CO2 (CARBON DIOXIDE) 29 MMOL/L (24-34); CREATININE 0.54 MG/DL (0.55-1.02); GFR AFRICAN AMERICAN 112 ML/MIN (>=60); GFR NON AFRICAN AMERICAN 96 ML/MIN (>=60); GLUCOSE, SERUM 105 MG/DL (60-99); PHOSPHORUS, SERUM 2.1 MG/DL (2.5-4.5); POTASSIUM, SERUM 3.6 MMOL/L (3.5-5.3); SODIUM, SERUM 147 MMOL/L (135-148)
[2016-09-05] MEDS ORDERED: CORDARONE PO (15:07)
[2016-09-05] MEDS ORDERED: COREG25 PO (15:08)
[2016-09-05] MEDS ORDERED: SPIRO25 PO (15:13)
== END 2016-09-05 16:34 | disposition home or self-care (01) | DRG 310 ==
LOC: ER 12:47 → EDBEDREQ 20:19 → 5NO 20:28
PROVIDERS: Emergency Medicine; Internal Medicine; Internal Medicine Pulmonary Disease
DX: I48.0 Paroxysmal atrial fibrillation (principal); I47.2 Ventricular tachycardia; I42.0 Dilated cardiomyopathy; I08.3 Combined rheumatic disorders of mitral, aortic and tricuspid valves; I10 Essential (primary) hypertension; Z79.01 Long term (current) use of anticoagulants; E78.5 Hyperlipidemia, unspecified; E87.6 Hypokalemia
CPT/HCPCS: 71020; 80048; 83735; 83880; 84100; 84443; 84484; 85025; 85610; 85730; 93005; 96365; 96366; 96367; 99291; A9270-GY